=== PATIENT | male | born 1945 | race Caucasian/White ===

== ENCOUNTER 2018-07-03 06:45 | Day surgery (SDC) | payer MEDICARE, BC ==
[~2018-07-03] VITALS: Ht 167.6 cm; Wt 88.2 kg
[~2018-07-03 06:45] MED LIST: CIPRO 500MG TA500 MG PO; NITROSTAT0.4 MG/TAB SL; NORCO 325 MG-51 TAB PO
[2018-07-03 07:39] VITALS: BP 127/79; PULSE 61; TEMP 97
[2018-07-03 08:50] VITALS: BP 129/74; PULSE 48; TEMP 97.4
[2018-07-03 09:05] VITALS: BP 127/79; PULSE 57
[2018-07-03 09:20] VITALS: BP 105/73; PULSE 49
[2018-07-03 09:35] VITALS: BP 113/83; PULSE 45
--- NOTE | 2018-07-03 09:43 | NUR ---
PATIENT ARRIVES FROM OR VIA CART. SLEEPY. ORANGE JUICE GIVEN. VS STARTED. CALL LIGHT WITHIN REACH.
--- NOTE | 2018-07-03 09:48 | NUR ---
PATIENT ASLEEP, RESOIRATIONS EVEN AND UNLABORED. AT BEDSIDE. CALL LIGHT WITHIN REACH.
--- NOTE | 2018-07-03 09:53 | NUR ---
PATIENT GIVEN MUFFIN AT THIS TIME. VS REMAIN STABLE, CALL LIGHT WITHIN REACG.
== END 2018-07-03 10:07 | disposition home or self-care (01) ==
LOC: SDCO 06:45
DX: K92.1 Melena (principal); K59.00 Constipation, unspecified; E66.9 Obesity, unspecified; K57.30 Diverticulosis of large intestine without perforation or abscess without bleeding; Z68.32 Body mass index [BMI] 32.0-32.9, adult
CPT/HCPCS: J2250; J3010; J7030

== ENCOUNTER → 2020-07-14 | Outpatient (CLI) | payer MEDICARE, BC ==
[~2020-07-14] MED LIST changes: +BARLEY LIFE; +FLOMAX 0.40.4 MG/CAP PO; +THE MEDICINE S200 M2 PO; +THERMOTABS; +VITAMIN C500 MG PO; +[UNRECOGNIZED DRUG - OTHER]; +[UNRECOGNIZED DRUG - OTHER] PO
== END ==
LOC: ZCOL.LAB 16:18
DX: E87.1 Hypo-osmolality and hyponatremia (principal)

== ENCOUNTER → 2020-07-14 | Outpatient (CLI) | payer MEDICARE, BC ==
[2020-07-14 17:00] LABS: CALCIUM 9.3 mg/dL (8.4-10.2); CREATININE, serum 1.04 (0.66-1.25); POTASSIUM 4.2 mmol/L (3.4-5.0)
== END ==
LOC: ZCOL.LAB 16:16
PROVIDERS: Nurse Practitioner Family
DX: E87.1 Hypo-osmolality and hyponatremia (principal)

== ENCOUNTER 2021-01-08 13:46 | Emergency (ER) | payer MEDICARE, BC ==
[~2021-01-08] VITALS: Ht 167.6 cm; Wt 91.3 kg
[~2021-01-08 13:46] MED LIST changes: -BARLEY LIFE; -FLOMAX 0.40.4 MG/CAP PO; -THE MEDICINE S200 M2 PO; -THERMOTABS; -VITAMIN C500 MG PO; -[UNRECOGNIZED DRUG - OTHER]; -[UNRECOGNIZED DRUG - OTHER] PO
[2021-01-08 13:54] VITALS: TEMP 98
[2021-01-08 16:36] VITALS: BP 134/80; PULSE 62
== END 2021-01-08 16:38 | disposition home or self-care (01) ==
LOC: COL.ER 13:46
DX: M66.0 Rupture of popliteal cyst (principal)

== ENCOUNTER 2021-02-19 18:12 | Inpatient (IN) | payer MEDICARE, BC ==
[~2021-02-19] VITALS: Wt 70.6 kg
[2021-02-19 19:00] LABS: HEMATOCRIT 49.6 % (42.0-52.0); HEMOGLOBIN 16.3 g/dl (13.5-18.0); MEAN CELL VOLUME 89 fl (80.0-100.0); MEAN CORPUSCULAR HEMOGLOBIN 29 pg (27.0-31.0); MEAN CORPUSCULAR HGB CONC 33 g/dl (33.0-37.0); MEAN PLATELET VOLUME 9.7 fl (7.4-10.4); PLATELET COUNT 155 K/mm3 (130-400); RED BLOOD COUNT 5.56 M/mm3 (4.20-5.60); REDCELL DISTRIBUTION WIDTH-CV 13.2 % (11.5-14.5)
[2021-02-19 19:17] LABS: ALANINE AMINOTRANSFERASE 30 U/L (0-55); ALKALINE PHOSPHATASE 76 U/L (40-150); ANION GAP 12 mmol/L (7-16); AST,SGOT 22 U/L (5-34); BILIRUBIN,TOTAL 1.3 mg/dL (0.2-1.2); BLOOD UREA NITROGEN 15 mg/dL (8-26); CALCIUM 9.2 mg/dL (8.4-10.2); CARBON DIOXIDE 19 mmol/L (23-31); CHLORIDE 104 mmol/L (98-107); CREATININE, serum 1.04 mg/dL (0.72-1.25); GLUCOSE 138 mg/dL (70-99); POTASSIUM 4.8 mmol/L (3.5-4.5); SODIUM 135 mmol/L (136-145); TOTAL PROTEIN 7.2 gm/dL (6.2-8.1)
[2021-02-19 19:23] LABS: TROPONIN-I < 0.010 ng/mL (0.00-0.033)
[2021-02-19 19:25] LABS: BAND 2 % (0-10); LYMPHOCYTE 3 % (20.0-51.0); NEUTROPHILS 89 % (42.0-75.2)
[2021-02-19 19:26] LABS: PLATELET ESTIMATE NORMAL (NORMAL)
[2021-02-19 20:11] LABS: COLLECTION METHOD CLEAN CATCH
[2021-02-19 20:22] LABS: MUCOUS Present /lpf; PH 5 (5-8); SQUAMOUS EPITHELIAL None Seen /hpf; URINE APPEARANCE Clear; URINE BACTERIA None Seen /hpf; URINE BILIRUBIN Negative (NEGATIVE); URINE BLOOD 1+ (NEGATIVE); URINE COLOR Yellow; URINE GLUCOSE Negative (NEGATIVE); URINE KETONE Negative (NEGATIVE); URINE LEUKOCYTE ESTERASE 1+ (NEGATIVE); URINE NITRATE Negative (NEGATIVE); URINE PROTEIN(semi-quant) Negative (NEGATIVE); URINE UROBILINOGEN Negative (NEGATIVE)
[2021-02-19 23:23] VITALS: BP 96/62; PULSE 58; TEMP 99
[2021-02-19] MEDS ORDERED: [UNRECOGNIZED DRUG - OTHER] PO (23:42)
[2021-02-19] MEDS ORDERED: THE MEDICINE S200 M2 PO (23:43)
[2021-02-19] MEDS ORDERED: THERMOTABS (23:44)
[2021-02-19] MEDS ORDERED: [UNRECOGNIZED DRUG - OTHER] (23:45)
[2021-02-19] MEDS ORDERED: BARLEY LIFE (23:46)
[2021-02-20] VITALS (8 sets, daily range): BP systolic 97–129; BP diastolic 56–70; PULSE 49–63; TEMP 98–99.6
--- NOTE | 2021-02-20 00:14 | NUR ---
PT ARRIVES TO MEDICAL FLOOR ROOM 358 AT 2300 AND WAS ABLE TO AMBULATE TO BED WITH STEADY GAIT. N/S INFUSING AT 125CC/HR AND ABX TO RIGHT AC. PT A/0X4, PLEASANT AND COOPERATIVE.VSS. ORAL TEMP 99. NURSE WILL F/U. POC DISCUSSED WITH PT AND UROLOGY CONSULT WELL. PT VERBALIZES UNDERSTANDING. ALL QUESTIONS.CONCERNS ANSWERED AT THIS TIME. PT ORIENTED TO FLOOR AND HOSPITAL POLICY. PT CONFIRMS UNDERSTANDING. ALL NEEDS MET AT THIS TIME. NURSE WILL CONTINUE TO MONITOR. CALL LIGHT WITHIN REACH.
--- NOTE | 2021-02-20 05:43 | NUR ---
PT HAD UNEVENTFUL NIGHT.SLEPT MAJORITY OF THE NIGHT. PT DOES WEAR CPAP AT NIGHT BUT DID NOT HAVE MACHINE WITH HIM, HE ASKED TO PUT HIM ON OXYGEN, 1L OXYGEN PLACED ON PT OVERNIGHT. N/S INFUSING TO RAC AT 125CC/HR. PT DENIES PAIN,N,V,D. NO BM LAST NIGHT. ALL NEEDS MET THIS NIGHT. CALL LIGHT WITHIN REACH.
--- NOTE | 2021-02-20 06:26 | NUR ---
THIS NURSE COMPLETED UROLOGY CONSULT WITH . ATIYA FOR FLOMAX 04.MG DAILY INPUT.
--- NOTE | 2021-02-20 06:30 | NUR ---
Report received from RON Minor. Pt in bed resting, doing well, denies needs, fresh water provided, will c onitnue to monitor.
[2021-02-20 06:49] LABS: BASO # 0.1 K/mm3 (0.0-0.2); BASO % 0.4 % (0.0-2.0); EOS % 0.1 % (0-4.0); GRAN # 14.1 K/mm3 (1.4-6.5); GRAN % 83.6 % (42.2-75.2); HEMATOCRIT 41.8 % (42.0-52.0); LYMPH # 1.2 K/mm3 (1.2-3.4); LYMPH % 7.1 % (20.0-51.0); MEAN CELL VOLUME 91 fl (80.0-100.0); MEAN CORPUSCULAR HEMOGLOBIN 30 pg (27.0-31.0); MEAN CORPUSCULAR HGB CONC 33 g/dl (33.0-37.0); MEAN PLATELET VOLUME 10.1 fl (7.4-10.4); MONO # 1.3 K/mm3 (0.1-0.6); PLATELET COUNT 135 K/mm3 (130-400); RED BLOOD COUNT 4.59 M/mm3 (4.20-5.60); REDCELL DISTRIBUTION WIDTH-CV 13.6 % (11.5-14.5)
[2021-02-20 06:50] LABS: HEMOGLOBIN 13.6 g/dl (13.5-18.0)
[2021-02-20 07:13] LABS: CALCIUM 7.8 mg/dL (8.4-10.2); CREATININE, serum 0.92 mg/dL (0.72-1.25); POTASSIUM 4.3 mmol/L (3.5-4.5)
--- NOTE | 2021-02-20 08:05 | NUR ---
Assessment charted. Discussed side effects of flomax, pt will call when ready to get up. Pain at 2/10 to back, chronic issue, tylenol provided per request. IVF to R A/C. Will continue to monitor.
--- NOTE | 2021-02-20 10:01 | NUR ---
Initial visit; Patient thanked Batting Machine Operator Insulation for looking in on him, visiting and offering God's blessings.
--- NOTE | 2021-02-20 10:54 | NUR ---
[facility]ola worker met with patient to discuss discharge plan. Patient lives at home with his Divya ([phone]) and his mother in law Desiree [place] towards [place]. Patient reports that he is fully independent with his ADL's and does not utilize any DME to assist with mobility. Patient does use a CPAP machine and he gets his supplies through [facility]. PCP is Dr. Quintin Pierce and he utilizes [facility] with no cost difficulty. Patient verbalizes that he does not have a DPOA-HC established and is not interested in creating one at this time. Education provided to the patient surrounding a DPOA-HC. Patient is ok with the decisions going to his . He reports he has no children but does have siblings. Patient's plan is to return home with no concers. Discharge plan: Home
--- NOTE | 2021-02-20 17:36 | NUR ---
PT RESTING IN BED. COMPLAINS OF ABD DISCOMFORT. REPORTS NOT BEING ABLE TO HAVE A BOWEL MOVEMENT. REQUESTS PRUNE JUICE. NO SIGNS OR SYMPTOMS OF DISTRESS. CALL LIGHT WITHIN REACH
[2021-02-20] MEDS ORDERED: VITAMIN C500 MG PO (20:41)
--- NOTE | 2021-02-20 21:20 | NUR ---
PT PROVIDED THIS NURSE 6 NATURAL SUPPLMENT MEDICATIONS. MEDICATIONS PLACED IN MED ROOM. WILL RELAY TO DOUGH CUTTING MACHINE OPERATOR FOR TRANSPORT TO PHARMACY. PT NAME ON BAG.
[2021-02-21 04:10] VITALS: BP 110/65; PULSE 69; TEMP 98.8
--- NOTE | 2021-02-21 05:43 | NUR ---
PT HAD UNEVENTFUL NIGHT. SLEPT MAJORITY OF THE NIGHT. TEMPERATURE WNL THIS MORNING. I&O NOTED AND RECORDED. PT CONTINUES TO REPORT DYSURIA. ABX ADMISTERED ORDERED. PT DID REPORT CONSTIPATION LAST NIGHT AND HAS A SMALL BM 02/20 MORNING. THIS NURSE PROVIDED STOOL SOFTENER, ENCOURAGED AMBULATION AND FLUID INTAKE AND ALSO PROVIDED PRUNE JUICE. PT EXPRESSES NO ADDITIONAL NEEDS THIS MORNING. CALL LIGHT WITHIN REACH.
[2021-02-21 06:45] LABS: BASO % 0.2 % (0.0-2.0); EOS # 0.1 K/mm3 (0.0-0.7); EOS % 0.6 % (0-4.0); GRAN # 8.6 K/mm3 (1.4-6.5); GRAN % 84.2 % (42.2-75.2); HEMATOCRIT 40.2 % (42.0-52.0); HEMOGLOBIN 13.4 g/dl (13.5-18.0); LYMPH # 0.7 K/mm3 (1.2-3.4); LYMPH % 7.1 % (20.0-51.0); MEAN CELL VOLUME 89 fl (80.0-100.0); MEAN CORPUSCULAR HEMOGLOBIN 30 pg (27.0-31.0); MEAN CORPUSCULAR HGB CONC 33 g/dl (33.0-37.0); MEAN PLATELET VOLUME 10.7 fl (7.4-10.4); MONO # 0.8 K/mm3 (0.1-0.6); MONO % 7.4 % (1.7-9.3); PLATELET COUNT 111 K/mm3 (130-400); RED BLOOD COUNT 4.52 M/mm3 (4.20-5.60); REDCELL DISTRIBUTION WIDTH-CV 13.3 % (11.5-14.5)
[2021-02-21 07:11] LABS: CALCIUM 8.1 mg/dL (8.4-10.2); CREATININE, serum 0.88 mg/dL (0.72-1.25); POTASSIUM 4.2 mmol/L (3.5-4.5)
--- NOTE | 2021-02-21 07:30 | NUR ---
REPORT RECIEVED FROM RON JOSEPH. NO SIGNS OR SYMPTOMS OF DISTRESS, NO COMPLAINTS OF PAIN OR DYSPNEA. PT DID HAVE BM LAST NIGHT AND APPEARS TO BE TRYING TO HAVE ANOTHER THIS AM. CALL LIGHT WITHIN REACH
[2021-02-21 08:24] VITALS: BP 120/65; PULSE 51; TEMP 98.5
--- NOTE | 2021-02-21 10:19 | NUR ---
ASSESSMENT COMPLETE. NO SIGNS OR SYMPTOMS OF DISTRESS, NEW IV PLACED IN LFA. OLD IV WAS LEAKING AND REDDENED. NO PAIN AT THIS TIME. CALL LIGHT WITHIN REACH
[2021-02-21 11:11] VITALS: BP 99/57; PULSE 51; TEMP 99.2
--- NOTE | 2021-02-21 13:18 | NUR ---
First visit from the show card letterer. No needs right now.
[2021-02-21 17:08] VITALS: BP 118/65; PULSE 47; PULSE 50; TEMP 99.3
[2021-02-21 19:19] VITALS: BP 145/74; PULSE 61; TEMP 100.8
[2021-02-21 20:14] VITALS: TEMP 99.2
[2021-02-22] VITALS (7 sets, daily range): BP systolic 112–145; BP diastolic 44–83; PULSE 46–77; TEMP 97.6–99.6
--- NOTE | 2021-02-22 05:18 | NUR ---
PT TEMPERATURE ELEVATED TWICE THIS NIGHT, CONVECTION COOLING AND MEDICATION INTERVENTIONS. PT TEMP CONTINUES TO FLUNCTUATE THROUGH OUT NIGHT. PASS STATES HE PASSED A SMALL BM LAST NIGHT.PT WORE CPAP THROUGH OUT NIGHT. PT PROVIDED SUPPLIES FOR BATH , LINENS CHANGED. PT REPORTS OCCIPITAL HEADACHE, MEDICATION ADMINISTERED ORDERED. ABX ADMINISTERED ORDERED. ALL NEEDS MET THIS NIGHT. CALL LIGHT WITHIN REACH.
[2021-02-22 06:50] LABS: BASO % 0.5 % (0.0-2.0); EOS # 0.1 K/mm3 (0.0-0.7); EOS % 1.2 % (0-4.0); GRAN # 3.2 K/mm3 (1.4-6.5); GRAN % 75.4 % (42.2-75.2); HEMOGLOBIN 14.3 g/dl (13.5-18.0); LYMPH # 0.5 K/mm3 (1.2-3.4); LYMPH % 12.5 % (20.0-51.0); MEAN CELL VOLUME 91 fl (80.0-100.0); MEAN CORPUSCULAR HEMOGLOBIN 30 pg (27.0-31.0); MEAN CORPUSCULAR HGB CONC 33 g/dl (33.0-37.0); MEAN PLATELET VOLUME 10.6 fl (7.4-10.4); MONO # 0.4 K/mm3 (0.1-0.6); MONO % 9.9 % (1.7-9.3); PLATELET COUNT 126 K/mm3 (130-400); RED BLOOD COUNT 4.84 M/mm3 (4.20-5.60); REDCELL DISTRIBUTION WIDTH-CV 13.2 % (11.5-14.5)
[2021-02-22 06:57] LABS: CALCIUM 8.6 mg/dL (8.4-10.2); CREATININE, serum 0.88 mg/dL (0.72-1.25); POTASSIUM 3.9 mmol/L (3.5-4.5)
--- NOTE | 2021-02-22 09:29 | NUR ---
Follow-up; Contreras thanked Director Digital Communications for looking in on him and wishing him well. Patient is very appreciative of his care and blessings.
--- NOTE | 2021-02-22 14:28 | NUR ---
Primary nurse was assisted with [phone] [facility] AD[employer] student Kyra Flynn and [facility] instructor Lina Romero MSN, RN
--- NOTE | 2021-02-22 16:12 | NUR ---
Patient has done well today. Only complaint was of a headache and PRN tylenol was given. Patient's temp was 98.5, patient and told this RN that this was high for the patient and that he normally runs around 96.5. Patient is independent in the room and has been instructed to utilize his call light if any needs or concerns arise.
--- NOTE | 2021-02-22 20:30 | NUR ---
Initial shift assessment done-denies pain, denies problems with urinating-states he is hoping to go home tomorrow- no requests. VSS. Refusing Lovenox.
[2021-02-23 04:13] VITALS: BP 129/58; PULSE 48; TEMP 98.6
[2021-02-23 06:37] LABS: BASO % 0.8 % (0.0-2.0); EOS # 0.2 K/mm3 (0.0-0.7); EOS % 3.5 % (0-4.0); GRAN # 3.1 K/mm3 (1.4-6.5); GRAN % 60.1 % (42.2-75.2); HEMOGLOBIN 14.1 g/dl (13.5-18.0); LYMPH # 0.8 K/mm3 (1.2-3.4); LYMPH % 16.2 % (20.0-51.0); MEAN CELL VOLUME 90 fl (80.0-100.0); MEAN CORPUSCULAR HEMOGLOBIN 29 pg (27.0-31.0); MEAN CORPUSCULAR HGB CONC 32 g/dl (33.0-37.0); MEAN PLATELET VOLUME 10.2 fl (7.4-10.4); MONO % 18.8 % (1.7-9.3); PLATELET COUNT 150 K/mm3 (130-400); RED BLOOD COUNT 4.88 M/mm3 (4.20-5.60); REDCELL DISTRIBUTION WIDTH-CV 13.2 % (11.5-14.5)
[2021-02-23 07:00] LABS: CALCIUM 8.9 mg/dL (8.4-10.2); CREATININE, serum 0.84 mg/dL (0.72-1.25)
[2021-02-23 07:35] VITALS: BP 122/74; PULSE 48; TEMP 98.3
--- NOTE | 2021-02-23 08:51 | NUR ---
PATIENT RESTING IN BED AT THIS TIME, C/O MILD HEADACHE, STATED LAST NIGHT HE WAS SWEATING AND COLD. TOOK MEDICATIONS WHOLE WITH JUICE.
--- NOTE | 2021-02-23 10:47 | NUR ---
Shift assessment was completed by Chelsi - Student RN. This RN agrees with this student nurse's assessment findings. Patient is A&Ox4 and independent. Patient does not have any complaints at this time.
[2021-02-23 11:21] VITALS: BP 124/72; PULSE 72; TEMP 98.4
[2021-02-23] MEDS ORDERED: CIPRO 500MG TA500 MG PO (12:19)
[2021-02-23] MEDS ORDERED: FLOMAX 0.40.4 MG/CAP PO (12:19)
--- NOTE | 2021-02-23 13:20 | NUR ---
The patient is to discharge back home with his today, 02/23. LILY met with the patient and presented and read the IM form outloud to him. The patient verbalized understanding and signed the form. SW provided him with a copy. No additional needs at this time.
--- NOTE | 2021-02-23 13:44 | NUR ---
Patient will be discharging shortly. IV access discontinued by this RN. Patient education was given and follow-up appointments discussed. Patient does not have any complaints or concerns at this time.
--- NOTE | 2021-02-23 14:07 | NUR ---
Primary nurse was assisted with [phone] patient care by [facility] Chelsi Cardona and [facility] instructor Lina Romero MSN, RN
== END 2021-02-23 14:05 | disposition home or self-care (01) | DRG 872 ==
LOC: COL.ER 18:12 → MEDICAL 21:36
PROVIDERS: Emergency Medicine; Physician Assistant; Student in an Organized Health Care Education/Training Program; ADMIT Internal Medicine
DX: A41.9 Sepsis, unspecified organism (principal); N39.0 Urinary tract infection, site not specified; K59.00 Constipation, unspecified; E87.5 Hyperkalemia; G47.33 Obstructive sleep apnea (adult) (pediatric); M17.11 Unilateral primary osteoarthritis, right knee; D69.6 Thrombocytopenia, unspecified; N41.9 Inflammatory disease of prostate, unspecified; N40.1 Benign prostatic hyperplasia with lower urinary tract symptoms; R35.0 Frequency of micturition; J34.89 Other specified disorders of nose and nasal sinuses; Z20.822 Contact with and (suspected) exposure to COVID-19
CPT/HCPCS: 99231-AI; 99232-AI; 99239; J0744; J1650; J2270; J2405; J7030; J7040; Q9967

== ENCOUNTER → 2024-01-09 | Outpatient (CLI) | payer MEDICARE, BC ==
[~2024-01-09] MED LIST changes: +BARLEY LIFE; +FLOMAX 0.40.4 MG/CAP PO; +PRILOSEC 20MG20 MG PO; +THE MEDICINE S200 M2 PO; +THERMOTABS; +VITAMIN C500 MG PO; +[UNRECOGNIZED DRUG - OTHER]; +[UNRECOGNIZED DRUG - OTHER] PO
== END ==
LOC: COL.RAD 08:39
DX: K21.9 Gastro-esophageal reflux disease without esophagitis (principal); K31.4 Gastric diverticulum